=== PATIENT | female | born 1995 | race African-American/Black ===

== ENCOUNTER 2017-12-09 19:06 | Emergency (ER) | payer MEDICAID ==
[~2017-12-09] VITALS: Ht 167.6 cm; Wt 7.2 kg
[~2017-12-09 19:06] MED LIST: BACT800T5 PO; HYDR-3580 PO; IBUP1TAB7 PO
[2017-12-09 19:20] VITALS: BP 98/55; PULSE 90; RESP 20; TEMP 97.2; O2SAT 97
[2017-12-09] MEDS ORDERED: SODIUM CHLOR 0.9% 1000 ML INJ 1,000 ML IV SCH (20:23)
[2017-12-09] MEDS ORDERED: SODIUM CHLORIDE 0.9% FLUSH 10 ML FLUSH IV FLUSH PRN (20:30)
[2017-12-09] MEDS ORDERED: ONDANSETRON HCL 4 MG/2 ML VIAL IVP ONE (20:30)
--- NOTE | 2017-12-09 20:37 | PD ---
HPI Chief Complaint: GI Complaint Time Seen by Provider: 20:35 Travel History International Travel<30 days: No Contact w/Intl Traveler<30days: No Traveled to known affect area: No History of Present Illness HPI 22-year-old female patient with history of no significant past medical issues, presents to the ER today with nausea, vomiting, diarrhea, fatigue, abdominal cramping discomfort starting last night. She states that her coworker has also had some similar symptoms. She also states she had some subjective fevers. She denies any shortness of breath, chest pains, or other symptoms. Modifying Factors: None Associated Signs & Symptoms: Nausea, vomiting, diarrhea, fatigue, abdominal cramps Risk Factors: Sick contact PFSH Past Medical History Arthritis: No Cancer: No Cardiovascular Problems: No Cerebrovascular Accident: No Developmental Delay: No Diminished Hearing: No Gastrointestinal Disorders: No Headaches: Yes Heparin Induced Thrombocytopen: No Immune Disorder: No Implanted Vascular Access Dvce: No Kidney Stones: Yes (states L kidney has stone) Neurologic: No Psychiatric: No Reproductive: No Respiratory: No Immunizations Current: Yes Migraines: Yes Renal Failure: No Seizures: No Sickle Cell Disease: No LMP: 12/01/17 : 2 Para: 1 Miscarriage: 1 : 0 Ovarian Cysts: Yes Past Surgical History Section: Yes Other Surgery: No Social History Alcohol Use: Yes (occ) Tobacco Use: No Substance Use: No Allergies-Medications (Allergen,Severity, Reaction): Coded Allergies: No Known Allergies (Verified Adverse Reaction, Unknown, 12/09/17) Reported Meds & Prescriptions Reported Meds & Active Scripts Active Hydrocodone-Acetaminophen 7.5-325 mg Tab 1 Tab PO Q4-6H PRN Bactrim DS (Sulfamethoxazole-Trimethoprim) 800-160 Mg Tab 1 Tab PO BID Ibuprofen 800 Mg Tab 800 Mg PO Q8H PRN Review of Systems Except as stated in HPI: all other systems reviewed are Neg Physical Exam Narrative GENERAL: Well-developed young female patient currently in mild distress at awake and oriented 3. SKIN: Focused skin assessment warm/dry. HEAD: Atraumatic. Normocephalic. EYES: Pupils equal and round. No scleral icterus. No injection or drainage. ENT: No nasal bleeding or discharge. Mucous membranes pink and moist. NECK: Trachea midline. No JVD. CARDIOVASCULAR: Regular rate and rhythm. No murmur appreciated. RESPIRATORY: No accessory muscle use. Clear to auscultation. Breath sounds equal bilaterally. GASTROINTESTINAL: Abdomen soft, non-tender, nondistended. Hepatic and splenic margins not palpable. MUSCULOSKELETAL: No obvious deformities. No clubbing. No cyanosis. No edema. NEUROLOGICAL: Awake and alert. No obvious cranial nerve deficits. Motor grossly within normal limits. Normal speech. PSYCHIATRIC: Appropriate mood and affect; insight and judgment normal. Data Data Last Documented VS Vital Signs Date Time Temp Pulse Resp B/P (MAP) Pulse Ox O2 Delivery O2 Flow Rate FiO2 12/09/17 21:23 60 16 96/58 (71) 99 Room Air 12/09/17 19:20 97.2 Orders Orders Complete Blood Count With Diff (12/09/17 20:23) Comprehensive Metabolic Panel (12/09/17 20:23) Lipase (12/09/17 20:23) Urinalysis - C+S If Indicated (12/09/17 20:23) Iv Access Insert/Monitor (12/09/17 20:23) Ecg Monitoring (12/09/17 20:23) Oximetry (12/09/17 20:23) Ondansetron Inj (Zofran Inj) (12/09/17 20:30) Sodium Chlor 0.9% 1000 Ml Inj (Ns 1000 M (12/09/17 20:23) Sodium Chloride 0.9% Flush (Ns Flush) (12/09/17 20:30) Ed Urine Pregnancytest Poc (12/09/17 20:23) Influenzae A/B Antigen (12/09/17 20:23) Urine Culture (12/09/17 20:30) Labs Laboratory Tests Test 12/09/17 20:30 White Blood Count 8.3 TH/MM3 Red Blood Count 4.26 MIL/MM3 Hemoglobin 12.9 GM/DL Hematocrit 38.2 % Mean Corpuscular Volume 89.6 FL Mean Corpuscular Hemoglobin 30.4 PG Mean Corpuscular Hemoglobin Concent 33.9 % Red Cell Distribution Width 12.6 % Platelet Count 295 TH/MM3 Mean Platelet Volume 8.1 FL Neutrophils (%) (Auto) 69.7 % Lymphocytes (%) (Auto) 22.0 % Monocytes (%) (Auto) 7.2 % Eosinophils (%) (Auto) 0.5 % Basophils (%) (Auto) 0.6 % Neutrophils # (Auto) 5.9 TH/MM3 Lymphocytes # (Auto) 1.8 TH/MM3 Monocytes # (Auto) 0.6 TH/MM3 Eosinophils # (Auto) 0.0 TH/MM3 Basophils # (Auto) 0.0 TH/MM3 CBC Comment DIFF FINAL Differential Comment Urine Color YELLOW Urine Turbidity MOD Urine pH 8.0 Urine Specific [place] 1.007 Urine Protein NEG mg/dL Urine Glucose (UA) NEG mg/dL Urine Ketones NEG mg/dL Urine Occult Blood NEG Urine Nitrite NEG Urine Bilirubin NEG Urine Leukocyte Esterase MOD Urine RBC 0-3 /hpf Urine WBC 15-19 /hpf Urine WBC Clumps MOD Urine Squamous Epithelial Cells 6-8 /hpf Urine Amorphous Sediment FEW Urine Bacteria FEW /hpf Urine Hyaline Casts 3-5 /lpf Urine Mucus FEW /lpf Microscopic Urinalysis Comment CULTURE INDICATED Blood Urea Nitrogen 8 MG/DL Creatinine 0.77 MG/DL Random Glucose 77 MG/DL Total Protein 7.8 GM/DL Albumin 3.8 GM/DL Calcium Level 9.2 MG/DL Alkaline Phosphatase 46 U/L Aspartate Amino Transf (AST/SGOT) 19 U/L Alanine Aminotransferase (ALT/SGPT) 15 U/L Total Bilirubin 0.6 MG/DL Sodium Level 137 MEQ/L Potassium Level 3.9 MEQ/L Chloride Level 105 MEQ/L Carbon Dioxide Level 28.7 MEQ/L Anion Gap 3 MEQ/L Estimat Glomerular Filtration Rate 115 ML/MIN Lipase 201 U/L MDM Medical Decision Making Medical Screen Exam Complete: Yes Emergency Medical Condition: Yes Medical Record Reviewed: Yes Interpretation(s) Laboratory Tests Test 12/09/17 20:30 Urine Turbidity MOD (CLEAR) Urine Leukocyte Esterase MOD (NEG) Urine WBC 15-19 /hpf (0-5) Urine WBC Clumps MOD (NONE) Urine Squamous Epithelial Cells 6-8 /hpf (0-5) Urine Bacteria FEW /hpf (NONE) Urine Hyaline Casts 3-5 /lpf (RARE) Urine Mucus FEW /lpf (OCC) Anion Gap 3 MEQ/L (5-15) Differential Diagnosis Gastroenteritis versus influenza versus versus dehydration versus metabolic issues Narrative Course Abdomen is fairly benign. Lab work did not show significant metabolic issues. Patient was given IV fluids and Zofran in the ER. Vital signs are stable. Influenza testing is negative. Patient is not . She does have a UTI which I plan to treat. My plan would be to release her at this point would follow-up to primary care doctor. Return for any worsening in symptoms as necessary. The plan has been discussed with her and she states understanding. Diagnosis Primary Impression: Urinary tract infection Med/Other Pt SpecificInfo: Prescription(s) given Scripts Nitrofurantoin Monohydrate Macrocrystals (Macrobid) 100 Mg Cap 100 MG PO BID for Infection for 7 Days, #14 CAP 0 Refills Prov: Kike Lopez MD 12/09/17 Ondansetron Odt (Zofran Odt) 4 Mg Tab 4 MG SL Q6HR Y for Nausea/Vomiting, #7 TAB 0 Refills Prov: Kike Lopez MD 12/09/17 Disposition: 01 DISCHARGE HOME Condition: Stable Kike Lopez MD Dec 09, 2017 20:37
[2017-12-09 20:40] VITALS: RESP 16; O2SAT 98
[2017-12-09 20:52] LABS: AUTOMATED NEUTROPHIL # 5.9 TH/MM3 (1.8-7.7); BASOPHIL % 0.6 % (0.0-2.0); EOSINOPHIL % 0.5 % (0.0-4.0); HEMATOCRIT 38.2 % (35.0-46.0); HEMOGLOBIN 12.9 GM/DL (11.6-15.3); LYMPHOCYTE # 1.8 TH/MM3 (1.0-4.8); MEAN CELL VOLUME 89.6 FL (80.0-100.0); MEAN CORPUSCULAR HEMOGLOBIN 30.4 PG (27.0-34.0); MEAN CORPUSCULAR HGB CONC 33.9 % (32.0-36.0); MEAN PLATELET VOLUME 8.1 FL (7.0-11.0); MONO % 7.2 % (0.0-8.0); MONOCYTE # 0.6 TH/MM3 (0-0.9); NEUT % 69.7 % (16.0-70.0); PLATELET COUNT 295 TH/MM3 (150-450); RED BLOOD COUNT 4.26 MIL/MM3 (4.00-5.30); RED CELL DISTRIBUTION WIDTH 12.6 % (11.6-17.2); WHITE BLOOD COUNT 8.3 TH/MM3 (4.0-11.0)
[2017-12-09 20:59] LABS: CHLORIDE 105 MEQ/L (98-107); SODIUM (NA) 137 MEQ/L (136-145)
[2017-12-09 21:02] LABS: BILIRUBIN, URINE NEG (NEG); BLOOD, URINE NEG (NEG); CALCIUM 9.2 MG/DL (8.5-10.1); GLUCOSE,URINE NEG (NEG); KETONE, URINE NEG (NEG); NITRITE,URINE NEG (NEG); URINE LEUKOCYTE ESTERASE MOD (NEG)
[2017-12-09 21:03] LABS: ALBUMIN 3.8 GM/DL (3.4-5.0); BICARBONATE 28.7 MEQ/L (21.0-32.0); BLOOD UREA NITROGEN 8 MG/DL (7-18); GLUCOSE,RANDOM 77 MG/DL (74-106)
[2017-12-09 21:06] LABS: ALT (GPT) 15 U/L (10-53); AST (GOT) 19 U/L (15-37); CREATININE 0.77 MG/DL (0.50-1.00); GLOMERULAR FILTRATION RATE 115 ML/MIN (>89)
[2017-12-09 21:07] LABS: TOTAL BILIRUBIN ADULT 0.6 MG/DL (0.2-1.0); TOTAL PROTEIN 7.8 GM/DL (6.4-8.2)
[2017-12-09 21:08] LABS: ALKALINE PHOSPHATASE 46 U/L (45-117)
[2017-12-09 21:12] LABS: URINE COLOR YELLOW (YELLW/STRAW)
[2017-12-09 21:14] LABS: BACTERIA, URINE FEW /hpf; MUCUS URINE FEW /lpf (OCC); RBC, URINE 0-3 /hpf (0-3); WBC, URINE 15-19 /hpf (0-5); WHITE BLOOD CELL CLUMPS MOD
[2017-12-09 21:15] LABS: AMORPHOUS SEDIMENT, URINE FEW
[2017-12-09 21:23] VITALS: BP 96/58; PULSE 60; RESP 16; O2SAT 99
[2017-12-09] MEDS ORDERED: ZOFR4TAB3 SL (22:20)
[2017-12-09] MEDS ORDERED: MACR100C2 PO (22:20)
[2017-12-09 22:45] VITALS: BP 100/68
== END 2017-12-09 22:46 | disposition home or self-care (01) ==
LOC: PHED 19:06
DX: N39.0 Urinary tract infection, site not specified (principal)
CPT/HCPCS: 80053; 81001; 83690; 84703; 85025; 87086; 87804; 96361; 96374; 99284; J2405; J7030

== ENCOUNTER 2018-03-18 00:53 | Emergency (ER) | payer MEDICAID, OTHER ==
[~2018-03-18] VITALS: Ht 165.1 cm; Wt 50.0 kg
[2018-03-18] VITALS (7 sets, daily range): BP systolic 102–130; BP diastolic 53–62; PULSE 82–160; RESP 18–32; TEMP 98.6; O2SAT 97–100
[~2018-03-18 00:53] MED LIST changes: +MACR100C2 PO; +ZOFR4TAB3 SL
[2018-03-18] MEDS ORDERED: LORazepam 2 MG/ML VIAL ONE ×2 (01:14→01:47)
[2018-03-18 03:14] LABS: ALBUMIN 4.5 GM/DL (3.4-5.0); ALKALINE PHOSPHATASE 51 U/L (45-117); ALT (GPT) 18 U/L (10-53); AST (GOT) 19 U/L (15-37); BICARBONATE 18.5 MEQ/L (21.0-32.0); BLOOD UREA NITROGEN 9 MG/DL (7-18); CALCIUM 8.8 MG/DL (8.5-10.1); CHLORIDE 106 MEQ/L (98-107); CREATININE 1.19 MG/DL (0.50-1.00); GLOMERULAR FILTRATION RATE 69 ML/MIN (>89); GLUCOSE,RANDOM 180 MG/DL (74-106); SODIUM (NA) 141 MEQ/L (136-145); TOTAL BILIRUBIN ADULT 0.3 MG/DL (0.2-1.0)
[2018-03-18] MEDS: POTASSIUM CHLOR 20 MEQ PREMIX 100 ML IV SCH ×2 (03:45→05:45)
[2018-03-18] MEDS ORDERED: POTASSIUM CHLORIDE 10 MEQ CONTROLLED RELEASE TAB PO ONE (04:15)
[2018-03-18] MEDS ORDERED: SODIUM CHLOR 0.9% 1000 ML INJ 1,000 ML IV ONE ×2 (04:15→07:00)
--- NOTE | 2018-03-18 04:35 | PD ---
HPI Chief Complaint: Alcohol/Drug Intoxication Time Seen by Provider: 03:05 History of Present Illness HPI Patient is a 23-year-old female presenting to the emergency department under a [place] act. Per the police report patient was intoxicated, roaming the streets into traffic. She was banging on a business is window [employer] employees , she was slurring, stumbling and not making any sense when she was talking. Patient presents, agitated and combative. H&P is limited. PFSH Past Medical History Headaches: Yes Kidney Stones: Yes (states L kidney has stone) Immunizations Current: Yes Migraines: Yes Renal Failure: No Seizures: No Sickle Cell Disease: No : 2 Para: 1 Miscarriage: 1 : 0 Ovarian Cysts: Yes Past Surgical History Section: Yes Social History Alcohol Use: Yes (occ) Tobacco Use: No Substance Use: Yes Allergies-Medications (Allergen,Severity, Reaction): Coded Allergies: No Known Allergies (Verified Adverse Reaction, Unknown, 12/09/17) Reported Meds & Prescriptions Reported Meds & Active Scripts Active Macrobid (Nitrofurantoin Monoh/Nitrofur Macro) 100 Mg Cap 100 Mg PO BID 7 Days Zofran Odt (Ondansetron Odt) 4 Mg Tab 4 Mg SL Q6HR PRN Hydrocodone-Acetaminophen 7.5-325 mg Tab 1 Tab PO Q4-6H PRN Bactrim DS (Sulfamethoxazole-Trimethoprim) 800-160 Mg Tab 1 Tab PO BID Ibuprofen 800 Mg Tab 800 Mg PO Q8H PRN Review of Systems ROS Limitations: Intoxication, Uncooperative, Combative Except as stated in HPI: all other systems reviewed are Neg Physical Exam Exam Limitations: Intoxication, Uncooperative, Combative Narrative GENERAL: Well-developed, well-nourished, alert, intoxicated female. SKIN: Warm and dry. HEAD: Atraumatic. Normocephalic. EYES: Pupils equal and round. No scleral icterus. No injection or drainage. ENT: No nasal bleeding or discharge. Mucous membranes pink and moist. NECK: Trachea midline. No JVD. CARDIOVASCULAR: Tachycardic RESPIRATORY: No accessory muscle use. Clear to auscultation. Breath sounds equal bilaterally. GASTROINTESTINAL: Abdomen soft, non-tender, nondistended. Hepatic and splenic margins not palpable. MUSCULOSKELETAL: Extremities without clubbing, cyanosis, or edema. No obvious deformities. NEUROLOGICAL: Awake and alert. No obvious cranial nerve deficits. Motor grossly within normal limits. Five out of 5 muscle strength in the arms and legs. Normal speech. PSYCHIATRIC: Combative and aggressive mood and affect; insight and judgment impaired. Disorganized thought process Data Data Last Documented VS Vital Signs Date Time Temp Pulse Resp B/P (MAP) Pulse Ox O2 Delivery O2 Flow Rate FiO2 03/18/18 05:26 100 20 115/58 (77) 100 Room Air 03/18/18 04:30 98.6 Orders Orders Lorazepam Inj (Ativan Inj) (03/18/18 01:14) Lorazepam Inj (Ativan Inj) (03/18/18 01:47) Urinalysis - C+S If Indicated (03/18/18 01:30) Drug Screen, Random Urine (03/18/18 01:30) Complete Blood Count With Diff (03/18/18 01:30) Alcohol (Ethanol) (03/18/18 01:30) Comprehensive Metabolic Panel (03/18/18 01:30) Potassium Chlor 20 Meq Premix (Kcl 20 Me (03/18/18 03:45) Potassium Chloride (Kcl) (03/18/18 04:15) Sodium Chlor 0.9% 1000 Ml Inj (Ns 1000 M (03/18/18 04:15) Restraints Non-Violent TANESHA.Q3H (03/18/18 04:31) Lorazepam Inj (Ativan Inj) (03/18/18 06:30) Labs Laboratory Tests Test 03/18/18 01:30 Blood Urea Nitrogen 9 MG/DL Creatinine 1.19 MG/DL Random Glucose 180 MG/DL Total Protein 9.0 GM/DL Albumin 4.5 GM/DL Calcium Level 8.8 MG/DL Alkaline Phosphatase 51 U/L Aspartate Amino Transf (AST/SGOT) 19 U/L Alanine Aminotransferase (ALT/SGPT) 18 U/L Total Bilirubin 0.3 MG/DL Sodium Level 141 MEQ/L Potassium Level 2.6 MEQ/L Chloride Level 106 MEQ/L Carbon Dioxide Level 18.5 MEQ/L Anion Gap 17 MEQ/L Estimat Glomerular Filtration Rate 69 ML/MIN Urine Opiates Screen NEG Urine Barbiturates Screen NEG Urine Amphetamines Screen POS Urine Benzodiazepines Screen NEG Urine Cocaine Screen NEG Urine Cannabinoids Screen POS Ethyl Alcohol Level 284 MG/DL MDM Medical Decision Making Medical Screen Exam Complete: Yes Emergency Medical Condition: Yes Interpretation(s) Vital Signs Date Time Temp Pulse Resp B/P (MAP) Pulse Ox O2 Delivery O2 Flow Rate FiO2 03/18/18 03:18 95 20 109/55 (73) 97 Room Air Differential Diagnosis Psychosis versus substance abuse versus metabolic abnormality versus cardiac arrhythmia versus other Narrative Course Patient is a 23-year-old female presenting to the emergency department under a [place]man act. Patient was combative and aggressive on arrival. Patient was placed on key punch operator, continuous pulse oximetry, IV access was established. Patient was tachycardic on arrival likely secondary to drug use and agitation. Patient was placed in soft restraints, Ativan 2 mg IV 1 dose was ordered. Patient continued to be tachycardic and restless. She was given a second 2 mg dose of Ativan. Patient's heart rate trended down is currently in the 80s. Chemistry with potassium of 2.6, IV and oral replacement ordered. Creatinine 1.19, patient has received a total of 2 L of IV fluids. Urine drug screen is positive for amphetamines and marijuana, alcohol level is 284. IV potassium replacement is infusing with a third liter of IV fluids. At 0630 patient aroused, she became agitated and combative again. Her heart rate went from the mid 80s up to 156, she is crying as well as yelling out. 2 mg of Ativan IV 1 dose ordered. Patient continued to be agitated at 0650 him a discussed with my attending physician. Patient will be given additional dose of Ativan. Additional IV fluids ordered. Care of patient transferred to Dianne Hussein [facility] who will determine patient's disposition. Diagnosis Primary Impression: Polysubstance abuse Additional Impression: Hypokalemia Kell Crawford [employer] March 18, 2018 04:35
[2018-03-18] MEDS ORDERED: LORazepam 2 MG/ML VIAL IV PUSH ONE ×3 (06:30→09:00)
[2018-03-18 07:23] LABS: BILIRUBIN, URINE NEGATIVE (NEG); BLOOD, URINE NEG (NEG); GLUCOSE,URINE NEG (NEG); KETONE, URINE NEG (NEG); NITRITE,URINE NEG (NEG); PH, URINE 5.5 (5.0-8.5); URINE COLOR COLORLESS (YELLW/STRAW); URINE LEUKOCYTE ESTERASE NEGATIVE (NEG)
[2018-03-18 07:24] LABS: SQUAMOUS EPITHELIAL CELL URINE 0-5 /hpf (0-5)
[2018-03-18 08:14] LABS: AUTOMATED NEUTROPHIL # 8.7 TH/MM3 (1.8-7.7); BASOPHIL # 0.1 TH/MM3 (0-0.2); BASOPHIL % 0.4 % (0.0-2.0); HEMATOCRIT 43.8 % (35.0-46.0); HEMOGLOBIN 14.3 GM/DL (11.6-15.3); LYMPH % 31.1 % (9.0-44.0); LYMPHOCYTE # 4.4 TH/MM3 (1.0-4.8); MEAN CELL VOLUME 91.8 FL (80.0-100.0); MEAN CORPUSCULAR HGB CONC 32.7 % (32.0-36.0); MEAN PLATELET VOLUME 9.1 FL (7.0-11.0); MONO % 7.1 % (0.0-8.0); NEUT % 61.4 % (16.0-70.0); PLATELET COUNT 359 TH/MM3 (150-450); RED BLOOD COUNT 4.77 MIL/MM3 (4.00-5.30); WHITE BLOOD COUNT 14.2 TH/MM3 (4.0-11.0)
--- NOTE | 2018-03-18 08:51 | PD ---
Physical Exam Time Seen by Provider: 08:48 Narrative Report was given to me at change of shift. The patient is now awake and crying. She is aggravated, yelling and cussing. She is threatening staff. Patient is still in soft restraints because she is a threat to herself and others. There is a sitter in the room. Data Data Last Documented VS Vital Signs Date Time Temp Pulse Resp B/P (MAP) Pulse Ox O2 Delivery O2 Flow Rate FiO2 03/18/18 08:58 145 18 126/59 (81) 97 Room Air 03/18/18 04:30 98.6 Orders Orders Lorazepam Inj (Ativan Inj) (03/18/18 01:14) Lorazepam Inj (Ativan Inj) (03/18/18 01:47) Urinalysis - C+S If Indicated (03/18/18 01:30) Drug Screen, Random Urine (03/18/18 01:30) Complete Blood Count With Diff (03/18/18 01:30) Alcohol (Ethanol) (03/18/18 01:30) Comprehensive Metabolic Panel (03/18/18 01:30) Potassium Chlor 20 Meq Premix (Kcl 20 Me (03/18/18 03:45) Potassium Chloride (Kcl) (03/18/18 04:15) Sodium Chlor 0.9% 1000 Ml Inj (Ns 1000 M (03/18/18 04:15) Restraints Non-Violent TANESHA.Q3H (03/18/18 04:31) Lorazepam Inj (Ativan Inj) (03/18/18 06:30) Lorazepam Inj (Ativan Inj) (03/18/18 07:00) Sodium Chlor 0.9% 1000 Ml Inj (Ns 1000 M (03/18/18 07:00) Diet Regular Basic (03/18/18 Breakfast) Lorazepam Inj (Ativan Inj) (03/18/18 09:00) Diphenhydramine Inj (Benadryl Inj) (03/18/18 09:00) Ed Discharge Order (03/18/18 12:45) Labs Laboratory Tests Test 03/18/18 01:30 White Blood Count 14.2 TH/MM3 Red Blood Count 4.77 MIL/MM3 Hemoglobin 14.3 GM/DL Hematocrit 43.8 % Mean Corpuscular Volume 91.8 FL Mean Corpuscular Hemoglobin 30.0 PG Mean Corpuscular Hemoglobin Concent 32.7 % Red Cell Distribution Width 13.0 % Platelet Count 359 TH/MM3 Mean Platelet Volume 9.1 FL Neutrophils (%) (Auto) 61.4 % Lymphocytes (%) (Auto) 31.1 % Monocytes (%) (Auto) 7.1 % Eosinophils (%) (Auto) 0.0 % Basophils (%) (Auto) 0.4 % Neutrophils # (Auto) 8.7 TH/MM3 Lymphocytes # (Auto) 4.4 TH/MM3 Monocytes # (Auto) 1.0 TH/MM3 Eosinophils # (Auto) 0.0 TH/MM3 Basophils # (Auto) 0.1 TH/MM3 CBC Comment DIFF FINAL Differential Comment Urine Color COLORLESS Urine Turbidity CLEAR Urine pH 5.5 Urine Specific [place] 1.003 Urine Protein NEG mg/dL Urine Glucose (UA) NEG mg/dL Urine Ketones NEG mg/dL Urine Occult Blood NEG Urine Nitrite NEG Urine Bilirubin NEGATIVE Urine Urobilinogen LESS THAN 2.0 MG/DL Urine Leukocyte Esterase NEGATIVE Urine Squamous Epithelial Cells 0-5 /hpf Microscopic Urinalysis Comment CULT NOT INDICATED Blood Urea Nitrogen 9 MG/DL Creatinine 1.19 MG/DL Random Glucose 180 MG/DL Total Protein 9.0 GM/DL Albumin 4.5 GM/DL Calcium Level 8.8 MG/DL Alkaline Phosphatase 51 U/L Aspartate Amino Transf (AST/SGOT) 19 U/L Alanine Aminotransferase (ALT/SGPT) 18 U/L Total Bilirubin 0.3 MG/DL Sodium Level 141 MEQ/L Potassium Level 2.6 MEQ/L Chloride Level 106 MEQ/L Carbon Dioxide Level 18.5 MEQ/L Anion Gap 17 MEQ/L Estimat Glomerular Filtration Rate 69 ML/MIN Urine Opiates Screen NEG Urine Barbiturates Screen NEG Urine Amphetamines Screen POS Urine Benzodiazepines Screen NEG Urine Cocaine Screen NEG Urine Cannabinoids Screen POS Ethyl Alcohol Level 284 MG/DL [facility] Supervised Visit with SOY: No Narrative Course Report was given to me at change of shift. See KENROY Howell initial note for history and physical. The patient is now awake and crying. She is aggravated, yelling and cussing. She is threatening staff. Patient is still in soft restraints because she is a threat to herself and others. There is a sitter in the room. Benadryl and Ativan ordered. 0948: When I was given report CBC was pending. All of the labs were reviewed by initial provider and treated. CBC unremarkable. 1159: The patient is awake and alert. She continues to be agitated. She is yelling out that she wants to leave and that she is sober. The boyfriend was called and he is coming to supervisor opening and picking the patient. 1245: Patient is up and in the hallway walking without complication. She is speaking in full sentences. She is clinically sober at this time. She is being argumentative and agitated. Patient is clinically sober medically cleared for discharge. The patient's boyfriend is here to pick her up. Instructed patient to follow up with primary care provider. Patient verbalizes understanding and agreement with treatment plan. Patient is medically cleared and stable for discharge. Discussed reasons to return to the emergency department. Patient agrees with treatment plan. The patients vital signs are stable and the patient is stable for outpatient follow-up and treatment. Patient discharged home, stable and in no acute distress. Diagnosis Primary Impression: Polysubstance abuse Additional Impression: Hypokalemia Referrals: [facility] (Out patient) [facility] Primary Care Physician [facility] Patient Instructions: Abuse of Alcohol (ED), Alcohol Dependence (ED), Alcohol Intoxication (ED), General Instructions, Polysubstance Abuse (ED) Additional Instruction: Contract safety to your self and others Stop using drugs Drink alcohol in moderation or stop drinking alcohol Follow-up in the community for support, such as with Narcotics Anonymous and/or Alcoholics Anonymous Follow-up with psychiatry Follow-up with primary care provider Follow-up with Jacoby Juan/[facility] Return to the emergency department immediately with worsening of symptoms Med/Other Pt SpecificInfo: No Change to Meds, No Meds Exist/No RX given Disposition: DISCHARGE HOME Condition: Stable Dianne Hussein March 18, 2018 08:51
[2018-03-18] MEDS ORDERED: diphenhydrAMINE HCL 50 MG/ML VIAL IV PUSH ONE (09:00)
== END 2018-03-18 12:58 | disposition home or self-care (01) ==
LOC: NEPD 00:53
DX: F15.129 Other stimulant abuse with intoxication, unspecified (principal); F12.10 Cannabis abuse, uncomplicated; F10.129 Alcohol abuse with intoxication, unspecified; E87.6 Hypokalemia; Y90.8 Blood alcohol level of 240 mg/100 ml or more
CPT/HCPCS: 80053; 80307; 81001; 85025; 96365; 96366; 96375; 96376; 99284; J1200; J2060; J3480; J7030